=== PATIENT | male | born 1945 | race Caucasian/White ===

== ENCOUNTER 2023-09-20 19:43 | Inpatient (IN) | payer MEDICARE, BC ==
[~2023-09-20] VITALS: Ht 180.3 cm; Wt 77.6 kg
[2023-09-20 20:25] LABS: BASOPHILS # (AUTO) 0.1 K/UL (0.0-0.2); BASOPHILS % (AUTO) 0.7 % (0.0-2.0); EOSINOPHILS # (AUTO) 0.1 K/uL (0.0-0.7); EOSINOPHILS % (AUTO) 1.3 % (0.0-7.0); HEMATOCRIT 41.5 % (36.7-47.1); LYMPHOCYTES # (AUTO) 1.2 K/uL (0.8-4.8); LYMPHOCYTES % (AUTO) 16.5 % (20.5-51.5); MEAN CORPUSCULAR HEMOGLOBIN 29.6 uug (23.8-33.4); MEAN CORPUSCULAR HGB CONC 34 g/dL (32.5-36.3); MEAN CORPUSCULAR VOLUME 87.6 fL (73.0-96.2); MONOCYTES # (AUTO) 0.6 K/uL (0.1-1.30); MONOCYTES % (AUTO) 8.5 % (0.0-11.0); NEUTROPHILS # (AUTO) 5.4 K/uL (1.8-8.9); PLATELET COUNT (AUTO) 279 K/uL (152-348); RED BLOOD CELL COUNT(AUTO) 4.73 MIL/uL (4.06-5.63); RED CELL DISTRIBUTION WIDTH 13.8 % (12.1-16.2); WHITE BLOOD COUNT (AUTO) 7.5 K/uL (3.6-10.2)
[2023-09-20 20:33] LABS: DIFFERENTIAL COMMENT 1
[2023-09-20 20:37] LABS: CALCIUM 9.2 mg/dL (8.5-10.1); CARBON DIOXIDE 27 mmol/L (21-32); CHLORIDE 106 mmol/L (98-107); CREATININE 1.1 mg/dL (0.6-1.3); GLUCOSE 107 mg/dL (74-106); UREA NITROGEN, BLOOD 21 mg/dL (7-18)
[2023-09-20] MEDS ORDERED: CARV3.122 PO (20:43)
[2023-09-20] MEDS ORDERED: VALS160T2 PO (20:43)
[2023-09-20] MEDS ORDERED: ATOR20TA PO (20:43)
[2023-09-20] MEDS ORDERED: ASPI81TA31 PO (20:43)
[2023-09-20 20:46] LABS: ALANINE AMINOTRANSFERASE 23 U/L (16-63); ALBUMIN 3.8 g/dL (3.4-5.0); ALKALINE PHOSPHATASE 51 U/L (50-136); ASPARTATE AMINOTRANSFERASE 21 U/L (15-37); BILIRUBIN,DIRECT 0.2 mg/dL (0.0-0.2); BILIRUBIN,TOTAL 0.7 mg/dL (0.2-1.0); TOTAL PROTEIN, SERUM 7.2 g/dL (6.4-8.2)
[2023-09-20 20:53] LABS: ACETAMINOPHEN < 10.0 ug/mL (10-30)
[2023-09-20 21:09] LABS: ETHANOL < 3 MG/DL (0-10); SODIUM SERUM 142 mmol/L (136-145)
[2023-09-20 21:19] LABS: *BILIRUBIN,URIN NEGATIVE (NEGATIVE); *BLOOD, URINE 1+ (NEGATIVE); *COLOR,URINE YELLOW (YELLOW); *KETONES,URINE 1+ (NEGATIVE); *PROTEIN,URINE 2+ (NEGATIVE); LEUKOCYTE ESTERASE ,URINE 2+ (NEGATIVE); NITRITE, URINE POSITIVE (NEGATIVE); PH,URINE 6.5 (5.0-8.0); UGLUCOSE NEGATIVE (NEGATIVE)
[2023-09-20 21:21] LABS: *CLARITY,URINE SLIGHTLY CLOUDY (CLEAR)
[2023-09-20 21:30] LABS: *AMPHETAMINE, URINE NEGATIVE (NEGATIVE); *BARBITURATE, URINE NEGATIVE (NEGATIVE); *BENZODIAZEPINE, URINE NEGATIVE (NEGATIVE); *CANNABINOID, URINE NEGATIVE (NEGATIVE); *COCCAINE, URINE NEGATIVE (NEGATIVE); *OPIATE, URINE NEGATIVE (NEGATIVE); *PHENCYCLIDINE SCREEN,URINE NEGATIVE (NEGATIVE); FENTANYL, URINE NEGATIVE (NEGATIVE)
[2023-09-20 22:20] LABS: RBC,URINE 0-3 /HPF (0-3)
[2023-09-20 22:21] LABS: BACTERIA,URINE FEW /HPF (NONE SEEN); SQUAMOUS EPITHELIAL CELL,UR MODERATE /HPF (NONE SEEN)
[2023-09-21 00:45] VITALS: BP 170/90; TEMP 98.1; O2SAT 98
[2023-09-21] MEDS ORDERED: MAG HYDROX/AL HYDROX/SIMETH 30 ML LIQUID UDC PO PRN (01:30)
[2023-09-21] MEDS: BLOOD SUGAR DIAGNOSTIC 1 EACH STRIP VI ONE (01:30)
[2023-09-21] MEDS ORDERED: MAGNESIUM HYDROXIDE 30 ML LIQUID UDC PO PRN (01:30)
[2023-09-21] MEDS ORDERED: TEMAZEPAM 7.5 MG CAPSULE PO PRN (01:30)
[2023-09-21] MEDS: CLONAZEPAM 0.5 MG TABLET PO PRN (02:15)
[2023-09-21 07:58] VITALS: BP 208/114; TEMP 98; O2SAT 99
[2023-09-21 08:00] VITALS: BP 172/99; TEMP 98; O2SAT 96
[2023-09-21] MEDS: ASPIRIN 81 MG TAB.CHEW PO SCH (11:21)
[2023-09-21] MEDS: CARVEDILOL 3.125 MG TABLET PO SCH (11:21)
[2023-09-21] MEDS: VALSARTAN 160 MG TABLET PO SCH (11:33)
[2023-09-21 12:00] VITALS: BP 156/89; O2SAT 98
[2023-09-21 15:23] VITALS: BP 142/78; TEMP 98; O2SAT 98
[2023-09-21] MEDS: CEphaleXIN 500 MG CAPSULE PO SCH (18:00)
[2023-09-21 20:09] VITALS: BP 150/86; TEMP 97.6; O2SAT 100
[2023-09-21] MEDS: risperiDONE 0.5 MG TABLET PO SCH (21:21)
[2023-09-21] MEDS: ATORVASTATIN 20 MG TABLET PO SCH (21:21)
[2023-09-21] MEDS: DIVALPROEX SPRINKLE 125 MG CAP.SPRINK PO SCH (21:21)
[2023-09-22 07:59] VITALS: BP 154/89; TEMP 98; O2SAT 99
[2023-09-22 15:59] VITALS: BP 158/69; TEMP 98; O2SAT 99
[2023-09-22 19:11] VITALS: BP 140/79; TEMP 98; O2SAT 98
[2023-09-23 08:13] VITALS: BP 168/83; TEMP 97.5; O2SAT 98
[2023-09-23] MEDS: ACETAMINOPHEN 325 MG TABLET PO PRN (14:39)
[2023-09-23 15:21] VITALS: BP 138/72; TEMP 98; O2SAT 97
[2023-09-23 20:22] VITALS: BP 160/71; TEMP 98.1; O2SAT 98
[2023-09-23 21:35] VITALS: BP 139/86; TEMP 98.5; O2SAT 99
[2023-09-24 07:46] VITALS: BP 162/92; TEMP 98.1; O2SAT 100
[2023-09-24 16:51] VITALS: BP 163/85; TEMP 98; O2SAT 99
[2023-09-24 20:00] VITALS: BP 144/89; TEMP 97.9; O2SAT 98
[2023-09-25 07:47] VITALS: BP 145/85; TEMP 98.1; O2SAT 99
[2023-09-25] MEDS ORDERED: risperiDONE 0.5 MG TABLET PO SCH (09:00)
[2023-09-25] MEDS: risperiDONE 1 MG TABLET PO SCH (09:15)
[2023-09-25 17:07] VITALS: BP 123/61; TEMP 98; O2SAT 98
[2023-09-25 20:12] VITALS: BP 125/71; TEMP 98.1; O2SAT 98
[2023-09-26 08:26] VITALS: BP 154/80; TEMP 98; O2SAT 98
[2023-09-26 16:21] VITALS: BP 145/80; TEMP 98; O2SAT 97
[2023-09-26 19:52] VITALS: BP 148/68; TEMP 98; O2SAT 96
[2023-09-27 08:03] VITALS: BP 153/77; TEMP 98; O2SAT 99
[2023-09-27 15:39] VITALS: BP_SYST 115; BP_SYST 148; BP_DIAS 67; BP_DIAS 68; TEMP 98; O2SAT 98
[2023-09-27 20:06] VITALS: BP 146/81; TEMP 98.1; O2SAT 99
[2023-09-28 09:41] VITALS: BP 119/83; TEMP 98; O2SAT 99
[2023-09-28 15:49] VITALS: BP 119/62; TEMP 97; O2SAT 77
[2023-09-28 20:00] VITALS: BP 121/72; TEMP 98.7; O2SAT 98
[2023-09-29 08:17] VITALS: BP 146/90; TEMP 98.4; O2SAT 98
[2023-09-29 15:47] VITALS: BP 125/66; TEMP 98; O2SAT 100
[2023-09-29 20:00] VITALS: BP 135/69; TEMP 97.9; O2SAT 99
[2023-09-30 07:59] VITALS: BP 114/61; TEMP 98.2; O2SAT 98
[2023-09-30 14:55] VITALS: BP 108/63; TEMP 98; O2SAT 97
[2023-09-30 20:00] VITALS: BP 118/62; TEMP 98; O2SAT 99
[2023-10-01 07:54] VITALS: BP 144/74; TEMP 97.6; O2SAT 98
[2023-10-01 16:17] VITALS: BP 110/64; TEMP 97.8; O2SAT 98
[2023-10-01 20:45] VITALS: BP 156/81; TEMP 98; O2SAT 98
[2023-10-02 07:55] VITALS: BP 133/75; TEMP 98.1; O2SAT 98
[2023-10-02] MEDS: DIVALPROEX 125 MG TABLET.DR PO ONE (10:45)
[2023-10-02 16:10] VITALS: BP 125/71; TEMP 98; O2SAT 98
[2023-10-02 19:59] VITALS: BP 126/57; TEMP 98; O2SAT 98
[2023-10-02] MEDS: DIVALPROEX 250 MG TABLET.DR PO SCH (20:34)
[2023-10-03 08:01] VITALS: BP 141/74; TEMP 98.1; O2SAT 98
[2023-10-03 16:20] VITALS: BP 128/68; TEMP 98; O2SAT 98
[2023-10-03 19:43] VITALS: BP 140/66; TEMP 98.2; O2SAT 96
[2023-10-04 08:15] VITALS: BP 133/84; TEMP 98; O2SAT 98
[2023-10-04 09:03] VITALS: BP 133/84
== END 2023-10-04 15:00 | DRG 885 ==
LOC: ER 19:46 → GPS 23:08
PROVIDERS: ADMIT Psychiatry & Neurology Psychiatry; ATTEND Nurse Practitioner Acute Care
DX: F29 Unspecified psychosis not due to a substance or known physiological condition (principal); F03.92 Unspecified dementia, unspecified severity, with psychotic disturbance; F03.93 Unspecified dementia, unspecified severity, with mood disturbance; I11.9 Hypertensive heart disease without heart failure; Z91.148 Patient's other noncompliance with medication regimen for other reason; E78.5 Hyperlipidemia, unspecified; Z79.899 Other long term (current) drug therapy; Z79.82 Long term (current) use of aspirin; R79.89 Other specified abnormal findings of blood chemistry; Z86.39 Personal history of other endocrine, nutritional and metabolic disease
CPT/HCPCS: 36415; 70450; 71045; 80164; 84484; 85025; 93005; G0480; J3490